=== PATIENT | male | born 1975 | race Asian ===

== ENCOUNTER 2021-01-12 20:30 | Inpatient (IN) | payer MEDICAID ==
--- NOTE | 2021-01-12 20:50 | ED Physician Documentation ---
PD HPI ABD PAIN - Stated complaint Stated Complaint: NAUSEA,ABD CRAMPING - Chief complaint Chief Complaint: Abd Pain - History obtained from History obtained from: Patient - History of Present Illness Timing - onset: Today (this morning, onset of cramping abd pain after breakfast, which has persisted through the day, with the worst pain becoming RLQ. Associated with nausea and some dry heaving.) Timing - duration: Days (1/2) Timing - details: Gradual onset Quality: Cramping, Aching, Pain Location: All over / everywhere, RLQ Radiation: No: Chest, Left flank, Right flank Improved by: No: Vomiting Worsened by: Moving, Palpation. No: Breathing Associated symptoms: Nausea, Vomiting, Loss of appetite. No: Fever, Diarrhea, Constipation (last BM last evening and normal), Dysuria Similar symptoms before: Has not had sx before Recently seen: Not recently seen Review of Systems Constitutional: denies: Fever, Chills, Myalgias Nose: denies: Rhinorrhea / runny nose, Congestion Throat: denies: Sore throat Cardiac: denies: Chest pain / pressure, Palpitations, Calf pain Respiratory: denies: Dyspnea, Cough, Wheezing GI: reports: Abdominal Pain, Nausea, Vomiting. denies: Abdominal Swelling, Diarrhea, Bloody / black stool : denies: Dysuria, Frequency Musculoskeletal: denies: Extremity swelling Neurologic: denies: Near syncope, Altered mental status PD PAST MEDICAL HISTORY - Past Medical History Cardiovascular: Hypertension Respiratory: None Neuro: None Endocrine/Autoimmune: None GI: None - Past Surgical History Past Surgical History: No - Allergies Allergies/Adverse Reactions: Allergies Allergy/AdvReac Type Severity Reaction Status Date / Time No Known Drug Allergies Allergy Verified 01/12/21 20:44 PD ED PE NORMAL - Vitals Vital signs reviewed: Yes - General General: Alert and oriented X 3, Well developed/nourished, Other (appears in pain from abdomen.) - HEENT HEENT: Pharynx benign - Neck Neck: Supple, no meningeal sign, No adenopathy - Cardiac Cardiac: No murmur. No: RRR (regular but tachycardic) - Respiratory Respiratory: Clear bilaterally - Abdomen Abdomen: Soft, Non distended, Other (He is markedly tender in the right lower quadrant with some moderate tenderness in the mid abdomen and right upper. Left side is nontender. There is a mild percussion and rebound tenderness referring to the right.). No: Normal bowel sounds (diminished) - Male Male : Deferred - Rectal Rectal: Deferred - Back Back: No CVA TTP - Derm Derm: Normal color, Warm and dry - Extremities Extremities: Normal ROM s pain, No edema, No calf tenderness / cord - Neuro Neuro: Alert and oriented X 3, No motor deficit, Normal speech Results - Vitals Vitals: Vital Signs - 24 hr 01/12/21 20:40 Temperature 36.1 C L Heart Rate 106 H Respiratory 20 Rate Blood Pressure 164/111 H O2 Saturation 96 Oxygen O2 Source Room air - Labs Labs: Laboratory Tests 01/12/21 01/12/21 01/12/21 20:51 20:51 21:24 WBC 17.6 H RBC 6.05 Hgb 17.0 Hct 51.6 MCV 85.3 MCH 28.1 MCHC 32.9 RDW 12.4 Plt Count 244 MPV 10.5 Neut # (Auto) 14.7 H Lymph # (Auto) 1.5 [place] # (Auto) 1.1 H Eos # (Auto) 0.3 Baso # (Auto) 0.1 Absolute Nucleated RBC 0.00 Nucleated RBC % 0.0 Sodium 137 Potassium 4.0 Chloride 96 L Carbon Dioxide 30 Anion Gap 11.0 BUN 14 Creatinine 0.8 Estimated GFR (MDRD) 104 Glucose 160 H Calcium 9.1 Total Bilirubin 1.4 H AST 51 H ALT 65 H Alkaline Phosphatase 66 Total Protein 7.3 Albumin 4.3 Globulin 3.0 Albumin/Globulin Ratio 1.4 Lipase 19 L Urine Color Urine Clarity Urine pH Ur Specific [place] Urine Protein Urine Glucose (UA) Urine Ketones Urine Occult Blood Urine Nitrite Urine Bilirubin Urine Urobilinogen Ur Leukocyte Esterase Ur Microscopic Review Urine Culture Comments Nasal Adenovirus (PCR) NOT DETECTED Nasal B. parapertussis DNA (PCR) NOT DETECTED Nasal Coronavir 229E PCR NOT DETECTED Nasal Coronavir HKU1 PCR NOT DETECTED Nasal Coronavir NL63 PCR NOT DETECTED Nasal Coronavir OC43 PCR NOT DETECTED Nasal Enterovir/Rhinovir PCR NOT DETECTED Nasal Influenza B PCR NOT DETECTED Nasal Influenza A PCR NOT DETECTED Nasal Parainfluen 1 PCR NOT DETECTED Nasal Parainfluen 2 PCR NOT DETECTED Nasal Parainfluen 3 PCR NOT DETECTED Nasal Parainfluen 4 PCR NOT DETECTED Nasal RSV (PCR) NOT DETECTED Nasal B.pertussis DNA PCR NOT DETECTED Nasal C.pneumoniae (PCR) NOT DETECTED Jovan Human Metapneumo PCR NOT DETECTED Nasal M.pneumoniae (PCR) NOT DETECTED Nasal SARS-CoV-2 (PCR) NOT DETECTED 01/12/21 22:24 WBC RBC Hgb Hct MCV MCH MCHC RDW Plt Count MPV Neut # (Auto) Lymph # (Auto) [place] # (Auto) Eos # (Auto) Baso # (Auto) Absolute Nucleated RBC Nucleated RBC % Sodium Potassium Chloride Carbon Dioxide Anion Gap BUN Creatinine Estimated GFR (MDRD) Glucose Calcium Total Bilirubin AST ALT Alkaline Phosphatase Total Protein Albumin Globulin Albumin/Globulin Ratio Lipase Urine Color YELLOW Urine Clarity CLEAR Urine pH 7.5 Ur Specific [place] 1.015 Urine Protein NEGATIVE Urine Glucose (UA) 100 H Urine Ketones NEGATIVE Urine Occult Blood NEGATIVE Urine Nitrite NEGATIVE Urine Bilirubin NEGATIVE Urine Urobilinogen 0.2 (NORMAL) Ur Leukocyte Esterase NEGATIVE Ur Microscopic Review NOT INDICATED Urine Culture Comments NOT INDICATED Nasal Adenovirus (PCR) Nasal B. parapertussis DNA (PCR) Nasal Coronavir 229E PCR Nasal Coronavir HKU1 PCR Nasal Coronavir NL63 PCR Nasal Coronavir OC43 PCR Nasal Enterovir/Rhinovir PCR Nasal Influenza B PCR Nasal Influenza A PCR Nasal Parainfluen 1 PCR Nasal Parainfluen 2 PCR Nasal Parainfluen 3 PCR Nasal Parainfluen 4 PCR Nasal RSV (PCR) Nasal B.pertussis DNA PCR Nasal C.pneumoniae (PCR) Jovan Human Metapneumo PCR Nasal M.pneumoniae (PCR) Nasal SARS-CoV-2 (PCR) - Rads (name of study) abd/pelvic CT Radiology: Prelim report reviewed (acute appendicitis without abscess nor perforation), See rad report PD MEDICAL DECISION MAKING - ED course Complexity details: considered differential (Symptoms and exam suggestive of appendicitis. Will get labs/UA/CT and give fluids and meds. ), d/w patient, d/w area development consultant (Dr. Elam, contact center manager surgery, who will do surgery first thing in AM. ) Departure - Departure Disposition: ED Transfer to [facility] Clinical Impression: Abdominal pain Qualifiers: Abdominal location: right lower quadrant Qualified Code(s): R10.31 - Right lower quadrant pain Appendicitis Qualifiers: Appendicitis type: acute appendicitis Acute appendicitis type: with localized peritonitis Appendicitis gangrene presence: without gangrene Appendicitis perforation presence: without perforation Appendicitis abscess presence: without abscess Qualified Code(s): K35.30 - Acute appendicitis with localized peritonitis, without perforation or gangrene Condition: Stable Record reviewed to determine appropriate education?: Yes
[2021-01-12 20:57] LABS: BASOPHILS # (AUTO) 0.1 10^3/uL (0.0-0.1); BASOPHILS % (AUTO) 0.4 %; EOSINOPHILS # (AUTO) 0.3 10^3/uL (0.0-0.7); EOSINOPHILS % (AUTO) 1.6 %; HCT - HEMATOCRIT 51.6 % (42.0-52.0); LYMPHOCYTES # (AUTO) 1.5 10^3/uL (1.5-3.5); LYMPHOCYTES % (AUTO) 8.2 %; MEAN CORPUSCULAR HEMOGLOBIN 28.1 pg (27.0-31.0); MEAN CORPUSCULAR HGB CONC 32.9 g/dL (32.0-36.0); MEAN CORPUSCULAR VOLUME 85.3 fL (80.0-94.0); MEAN PLATELET VOLUME 10.5 fL (7.4-11.4); MONOCYTES # (AUTO) 1.1 10^3/uL (0.0-1.0); MONOCYTES % (AUTO) 6.1 %; NEUTROPHILS # (AUTO) 14.7 10^3/uL (1.5-6.6); NEUTROPHILS % (AUTO) 83.2 %; PLT - PLATELET COUNT 244 10^3/uL (130-450); RED BLOOD COUNT 6.05 10^6/uL (4.70-6.10); RED CELL DISTRIBUTION WIDTH 12.4 % (12.0-15.0); WHITE BLOOD COUNT 17.6 x10^3/uL (4.8-10.8)
[2021-01-12] MEDS ORDERED: HYDROmorphone 1 MG/ML CARPUJECT IVP STA (21:00)
[2021-01-12] MEDS ORDERED: ONDANSETRON 4 MG/2 ML VIAL IVP STA (21:00)
[2021-01-12] MEDS ORDERED: KETOROLAC 15 MG/ML VIAL IVP STA (21:00)
[2021-01-12] MEDS ORDERED: SODIUM CHLORIDE 0.9% 1,000 ML IV STA ×2 (21:00→22:11)
[2021-01-12 21:08] LABS: ALBUMIN 4.3 g/dL (3.2-5.5); ALBUMIN/GLOBULIN RATIO 1.4 (1.0-2.2); BILIRUBIN,TOTAL 1.4 mg/dL (0.2-1.0); CALCIUM 9.1 mg/dL (8.5-10.3); CREATININE 0.8 mg/dL (0.6-1.2); TOTAL PROTEIN 7.3 g/dL (6.7-8.2)
[2021-01-12] MEDS ORDERED: IOPAMIDOL-300 100 ML VIAL ONE (21:10)
[2021-01-12] MEDS ORDERED: IOPAMIDOL-300 100 ML VIAL IVP ONE (21:46)
--- NOTE | 2021-01-12 22:04 | CT Report ---
PROCEDURE: Abdomen/Pelvis W INDICATIONS: rlq pain/abd cramping since am CONTRAST: IV CONTRAST: Isovue 300 ml: 100 PO CONTRAST: *NO PO CONTRAST TECHNIQUE: After the administration of IV contrast, 5 mm thick sections acquired from the diaphragms to the symp hysis. 5 mm thick coronal and sagittal reformats were acquired. For radiation dose reduction, the f ollowing was used: automated exposure control, adjustment of mA and/or kV according to patient size. COMPARISON: None. FINDINGS: Image quality: Excellent. ABDOMEN: Lung bases: Mild bibasilar dependent atelectasis are seen posteriorly. Heart size is borderline enlar ged, no pericardial effusion. Solid organs: There is hepatosplenomegaly, no discrete hepatic or splenic lesion. Mild hepatic steato sis is seen. Tiny calcification in dependent portion of gallbladder lumen is seen. Foci of calcificat ion also seen scattered in gallbladder wall without focal gallbladder wall mass or thickening. Biliar y system is non dilated. Pancreas enhances normally. No adrenal nodules. Kidneys demonstrate sarah l size and enhancement, without hydronephrosis. 5 mm nonobstructing stone in mid pole of right kidne y is seen. Peritoneum and bowel: There is no evidence of bowel obstruction. Appendix is enlarged with moderate p eriappendiceal fat stranding consistent with acute appendicitis. There is no discrete drainable absce ss collection. No other area of abnormal bowel wall thickening. No free fluid of free air. Nodes and vessels: No retroperitoneal or mesenteric adenopathy by size criteria. Aorta and inferior vena cava are normal in size. Miscellaneous: No ventral hernias. PELVIS: Genitourinary: Bladder wall thickness is normal. Miscellaneous: No inguinal hernias or adenopathy. Bones: No suspicious bony lesions. No vertebral body compression fractures. IMPRESSION: 1. Finding is consistent with acute appendicitis. No drainable abscess collection is seen. No signs o f perforation. 2. No bowel obstruction. No other area of abnormal bowel wall thickening. 3. Nonobstructing stone in right kidney. No hydronephrosis. 4. Cholelithiasis and suggestion of focal area of wall calcification. No CT evidence of acute cholecy stitis. No biliary duct dilatation. 5. Hepatosplenomegaly and hepatic steatosis. No discrete hepatic or splenic lesion. Reviewed by: Arnold Ramírez MD on 01/12/2021 10:02 PM PDT Approved by: Arnold Ramírez MD on 01/12/2021 10:02 PM PDT Station ID: [id number]
[2021-01-12] MEDS ORDERED: PIPERACILLIN/TAZOBACTAM 3.375 GM in SODIUM CHLORIDE 0.9% MINIBAG 100 ML IV STA (22:11)
[2021-01-12 22:24] LABS: B. PARAPERTUSSIS- RESP PCR PAN NOT DETECTED; B. PERTUSSIS- RESP PCR PANEL NOT DETECTED; C. PNEUMONIAE- RESP PCR PANEL NOT DETECTED; CORONAVIRUS 229E-RESP PCR NOT DETECTED; CORONAVIRUS HKU1-RESP PCR NOT DETECTED; CORONAVIRUS NL63-RESP PCR NOT DETECTED; CORONAVIRUS OC43-RESP PCR NOT DETECTED; HUMAN METAPNEUMOVIRUS NOT DETECTED; INFLUENZA A- RESP PCR PANEL NOT DETECTED; INFLUENZA B - RESP PCR PANEL NOT DETECTED; M. PNEUMONIAE- RESP PCR PANEL NOT DETECTED; PARAINFLUENZA VIRUS 1 NOT DETECTED; PARAINFLUENZA VIRUS 2 NOT DETECTED; PARAINFLUENZA VIRUS 3 NOT DETECTED; PARAINFLUENZA VIRUS 4 NOT DETECTED; RHINOVIRUS/ENTEROVIRUS NOT DETECTED; RSV- RESP PCR PANEL NOT DETECTED; SARS-CoV-2 -RESP PCR PANEL NOT DETECTED
[2021-01-12] MEDS ORDERED: ONDANSETRON 4 MG/2 ML VIAL IVP PRN (22:30)
[2021-01-12] MEDS ORDERED: ONDANSETRON ODT 4 MG TABLET TL PRN (22:30)
[2021-01-12] MEDS ORDERED: PROCHLORPERAZINE 10 MG/2 ML VIAL IVP PRN (22:30)
[2021-01-12 22:34] LABS: BILIRUBIN,URINE NEGATIVE (NEGATIVE); GLUCOSE, URINE (UA) 100 mg/dL (NEGATIVE); KETONES,URINE (UA) NEGATIVE (NEGATIVE); LEUKOCYTE ESTERASE, URINE NEGATIVE (NEGATIVE); NITRITE,URINE NEGATIVE (NEGATIVE); OCCULT BLOOD,URINE NEGATIVE (NEGATIVE); PH,URINE 7.5 PH (5.0-7.5); PROTEIN,URINE NEGATIVE (NEGATIVE); UROBILINOGEN,URINE 0.2 (NORMAL) E.U./dL (NORMAL)
[2021-01-12 22:50] LABS: CLARITY,URINE CLEAR (CLEAR)
[2021-01-12] MEDS ORDERED: LACTATED RINGERS 1,000 ML IV SCH (23:00)
[2021-01-13] MEDS: HYDROmorphone 0.5 MG/0.5 ML SYRINGE IVP PRN ×4 (01:34→19:03)
[2021-01-13] MEDS ORDERED: PIPERACILLIN/TAZOBACTAM 3.375 GM in SODIUM CHLORIDE 0.9% MINIBAG 100 ML IV SCH (02:00)
[2021-01-13] MEDS: SODIUM CHLORIDE FLUSH 0.9% 10 ML SYRINGE IVP SCH ×3 (03:46→17:15)
[2021-01-13] MEDS: HYDROcod/ACETAM 5/325 MG TABLET PO PRN ×2 (05:06→11:09)
[2021-01-13] MEDS ORDERED: SODIUM CHLORIDE 0.9% 500 ML IV ONE (06:20)
[2021-01-13] MEDS: PIPERACILLIN/TAZOBACTAM 3.375 GM in SODIUM CHLORIDE 0.9% MINIBAG 100 ML IV SCH ×2 (06:58→13:27)
[2021-01-13] MEDS ORDERED: BUPIVACAINE 0.25% PF 30 ML VIAL ONE (08:11)
--- NOTE | 2021-01-13 08:11 | HISTORY & PHYSICAL EXAMINATION ---
Chief Complaint - Chief Complaint Chief Complaint: abdominal pain History of Present Illness - Admitted From Admitted From:: ED - History Obtained From Records Reviewed: yes History obtained from: pt Exam Limitations: none/ does not remember meds - History of Present Illness HPI Comment/Other: 1 day of right lower quadrant pain. Getting worse History - Past Medical History Cardiovascular: reports: Hypertension Respiratory: reports: None Neuro: reports: None Endocrine/Autoimmune: reports: None GI: reports: None Meds/Allgy - Allergies Allergies/Adverse Reactions: Allergies Allergy/AdvReac Type Severity Reaction Status Date / Time No Known Drug Allergies Allergy Verified 01/12/21 20:44 Review of Systems - Other Findings Other Findings: sleep apnea, know htn. he thinks he takes a med for this. does not remember the name 10 pt ros as above otherwise unremarkable Exam - Vital Signs Reviewed Vital Signs: Yes Vital Signs: Vital Signs x48h Temp Pulse Resp BP Pulse Ox 01/13/21 07:24 37.0 C 110 H 24 166/101 H 98 01/13/21 01:47 96 01/13/21 01:40 87 L 01/13/21 00:20 36.6 C 95 18 152/97 H 99 - Physical Exam General Appearance: positive: No acute distress, Alert Eyes Bilateral: positive: PERRL, EOMI ENT: positive: No signs of dehydration Neck: positive: No JVD Respiratory: positive: No respiratory distress, Breath sounds nml Cardiovascular: positive: Regular rate & rhythm Abdomen: positive: No distention, Other (right lower quadrant tenderness) Neurologic/Psychiatric: positive: Oriented x3 Conclusion/Plan - Problem List (1) Appendicitis Conclusion/Plan: Plan Ivf, Iv antibiotics and surgery if found appropriate per anesthesia. He has poorly controlled htn and sleep apnea. Required oxygen overnight. Treatment with antibiotics is an option. parq held and consent obtained Qualifiers: Appendicitis type: acute appendicitis Acute appendicitis type: with localized peritonitis Appendicitis gangrene presence: without gangrene Appendicitis perforation presence: without perforation Appendicitis abscess presence: without abscess Qualified Code(s): K35.30 - Acute appendicitis with localized peritonitis, without perforation or gangrene - Lab Results Fish Bones: 01/12/21 20:51 01/12/21 20:51 - Diagnostic Imaging Results Diagnostic Imaging Results: positive: Read independently
[2021-01-13] MEDS ORDERED: BUPIVACAINE 0.5%-EPI 1:200000 PF 30 ML VIAL ONE (08:36)
[2021-01-13] MEDS ORDERED: BUPIVACAINE 0.25% PF 30 ML VIAL SUBQ ONE (08:37)
--- NOTE | 2021-01-13 08:47 | ANESTHESIA ---
Pre-Anesthesia VS, & Labs - Diagnosis appendicitis - Procedure laparoscopic appendectomy Vital Signs: Temp Pulse Resp BP Pulse Ox 37.0 C 110 H 24 166/101 H 98 01/13/21 07:24 01/13/21 07:24 01/13/21 07:24 01/13/21 07:24 01/13/21 07:24 Height: 5 ft 11 in Weight (kg): 124 kg Body Mass Index: 38.1 BMI Classification: Obese - Lab Results Current Lab Results: Laboratory Tests 01/12/21 20:51: Sodium 137, Potassium 4.0, Chloride 96 L, Carbon Dioxide 30, Anion Gap 11.0, BUN 14, Creatinine 0.8, Estimated GFR (MDRD) 104, Glucose 160 H, Calcium 9.1, Total Bilirubin 1.4 H, AST 51 H, ALT 65 H, Alkaline Phosphatase 66, Total Protein 7.3, Albumin 4.3, Globulin 3.0, Albumin/Globulin Ratio 1.4, Lipase 19 L 01/12/21 20:51: WBC 17.6 H, RBC 6.05, Hgb 17.0, Hct 51.6, MCV 85.3, MCH 28.1, MCHC 32.9, RDW 12.4, Plt Count 244, MPV 10.5, Neut # (Auto) 14.7 H, Lymph # (Auto) 1.5, [place] # (Auto) 1.1 H, Eos # (Auto) 0.3, Baso # (Auto) 0.1, Absolute Nucleated RBC 0.00, Nucleated RBC % 0.0 Fish Bones: 01/12/21 20:51 01/12/21 20:51 Home Medications and Allergies Active Medications Acetaminophen (Acetaminophen 325 Mg Tablet) 650 mg PO Q4HR PRN PRN Reason: Pain 1 to 4 Hydrocodone Bitart/Acetaminophen (Hydrocod/Acetam 5/325 Mg Tablet) 1 tab PO Q4HR PRN PRN Reason: Pain 5 to 7 Last Admin: 01/13/21 05:06 Dose: 1 tab Documented by: Hydromorphone HCl (Hydromorphone 0.5 Mg/0.5 Ml Syringe) 0.5 mg IVP Q2H PRN PRN Reason: Pain 8 to 10 Last Admin: 01/13/21 05:02 Dose: 0.5 mg Documented by: Lactated Ringer's (Lr) 1,000 mls @ 125 mls/hr IV .Q8H [facility] Last Infusion: 01/13/21 08:09 Dose: 0 mls/hr Documented by: Piperacillin Sod/Tazobactam (Sod 3.375 gm/ Sodium Chloride) 100 mls @ 25 mls/hr IV Q8H [facility] Last Admin: 01/13/21 06:58 Dose: 25 mls/hr Documented by: Ondansetron HCl (Ondansetron Odt 4 Mg Tablet) 4 mg TL Q6HR PRN PRN Reason: Nausea / Vomiting Ondansetron HCl (Ondansetron 4 Mg/2 Ml Vial) 4 mg IVP Q6HR PRN PRN Reason: Nausea / Vomiting Prochlorperazine Edisylate (Prochlorperazine 10 Mg/2 Ml Vial) 10 mg IVP Q6HR PRN PRN Reason: Nausea / Vomiting Sodium Chloride (Sodium Chloride Flush 0.9% 10 Ml Syringe) 10 ml IVP PRN PRN PRN Reason: NEEDED PER PROVIDER ORDERS Sodium Chloride (Sodium Chloride Flush 0.9% 10 Ml Syringe) 10 ml IVP 0100,0900,1700 [facility] Last Admin: 01/13/21 08:09 Dose: Not Given Documented by: Allergies/Adverse Reactions: Allergies Allergy/AdvReac Type Severity Reaction Status Date / Time No Known Drug Allergies Allergy Verified 01/12/21 20:44 Anes History & Medical History - Medical History Cardiovascular: reports: Hypertension, Other (cardiac workup for tachycardia? last summer per patient at [place]' patient unsure of condition that he has, was prescribed meds but does not take consistently, does not know what they are. I ordered EKG and asked the RN to try to obtain records.) Pulmonary: reports: None Gastrointestinal: reports: None Neuro: reports: None Endocrine/Autoimmune: reports: None Smoking Status: Current every day smoker Exam General: Alert, Cooperative Mouth Opening: Greater than 4 Fingerbreadths Mallampati classification: III Thyromental Distance: greater than 6 cm Respiratory: Lungs clear Cardiovascular: Regular rate, Normal S1, Normal S2 Plan Anesthesia Type: General Consent for Procedure(s) Verified and Reviewed: No Code Status: Attempt Resuscitation ASA classification: 3-Severe systemic disease (uncontrolled HTN, some cardiac issues that are unknown) Is this case an emergency?: No (Will need to obtain cardiac clearance unless emergent)
[2021-01-13] MEDS ORDERED: D5.45NS W/20 MEQ KCL 1,000 ML IV STA (08:52)
--- NOTE | 2021-01-13 09:23 | PROVIDER PROGRESS NOTE ---
Subjective - Subjective Pt reports feeling: No change Objective - Vital Signs/Intake & Output Vital Signs: Vital Signs x48h Temp Pulse Resp BP Pulse Ox 01/13/21 07:24 37.0 C 110 H 24 166/101 H 98 01/13/21 01:47 96 01/13/21 01:40 87 L Intake & Output: Intake & Output 01/10/21 01/11/21 01/12/21 01/13/21 23:59 23:59 23:59 23:59 Intake Total 1100 1772.917 Balance 1100 1772.917 - Lab Results Fish Bones: 01/12/21 20:51 01/12/21 20:51 Other Labs: Lab Results x24hrs 01/12/21 01/12/21 01/12/21 Range/Units 22:24 21:24 20:51 WBC (4.8-10.8) x10^3/uL RBC (4.70-6.10) 10^6/uL Hgb (14.0-18.0) g/dL Hct (42.0-52.0) % MCV (80.0-94.0) fL MCH (27.0-31.0) pg MCHC (32.0-36.0) g/dL RDW (12.0-15.0) % Plt Count (130-450) 10^3/uL MPV (7.4-11.4) fL Neut # (Auto) (1.5-6.6) 10^3/uL Lymph # (Auto) (1.5-3.5) 10^3/uL [place] # (Auto) (0.0-1.0) 10^3/uL Eos # (Auto) (0.0-0.7) 10^3/uL Baso # (Auto) (0.0-0.1) 10^3/uL Absolute Nucleated RBC x10^3/uL Nucleated RBC % /100WBC Sodium 137 (135-145) mmol/L Potassium 4.0 (3.5-5.0) mmol/L Chloride 96 L (101-111) mmol/L Carbon Dioxide 30 (21-32) mmol/L Anion Gap 11.0 (6-13) BUN 14 (6-20) mg/dL Creatinine 0.8 (0.6-1.2) mg/dL Estimated GFR (MDRD) 104 (>89) Glucose 160 H (70-100) mg/dL Calcium 9.1 (8.5-10.3) mg/dL Total Bilirubin 1.4 H (0.2-1.0) mg/dL AST 51 H (10-42) IU/L ALT 65 H (10-60) IU/L Alkaline Phosphatase 66 (42-121) IU/L Total Protein 7.3 (6.7-8.2) g/dL Albumin 4.3 (3.2-5.5) g/dL Globulin 3.0 (2.1-4.2) g/dL Albumin/Globulin Ratio 1.4 (1.0-2.2) Lipase 19 L (22-51) U/L Urine Color YELLOW Urine Clarity CLEAR (CLEAR) Urine pH 7.5 (5.0-7.5) PH Ur Specific [place] 1.015 (1.002-1.030) Urine Protein NEGATIVE (NEGATIVE) mg/dL Urine Glucose (UA) 100 H (NEGATIVE) mg/dL Urine Ketones NEGATIVE (NEGATIVE) mg/dL Urine Occult Blood NEGATIVE (NEGATIVE) Urine Nitrite NEGATIVE (NEGATIVE) Urine Bilirubin NEGATIVE (NEGATIVE) Urine Urobilinogen 0.2 (NORMAL) (NORMAL) E.U./dL Ur Leukocyte Esterase NEGATIVE (NEGATIVE) Ur Microscopic Review NOT INDICATED Urine Culture Comments NOT INDICATED Nasal Adenovirus (PCR) NOT DETECTED Nasal B. parapertussis DNA (PCR) NOT DETECTED Nasal Coronavir 229E PCR NOT DETECTED Nasal Coronavir HKU1 PCR NOT DETECTED Nasal Coronavir NL63 PCR NOT DETECTED Nasal Coronavir OC43 PCR NOT DETECTED Nasal Enterovir/Rhinovir PCR NOT DETECTED Nasal Influenza B PCR NOT DETECTED Nasal Influenza A PCR NOT DETECTED Nasal Parainfluen 1 PCR NOT DETECTED Nasal Parainfluen 2 PCR NOT DETECTED Nasal Parainfluen 3 PCR NOT DETECTED Nasal Parainfluen 4 PCR NOT DETECTED Nasal RSV (PCR) NOT DETECTED Nasal B.pertussis DNA PCR NOT DETECTED Nasal C.pneumoniae (PCR) NOT DETECTED Jovan Human Metapneumo PCR NOT DETECTED Nasal M.pneumoniae (PCR) NOT DETECTED Nasal SARS-CoV-2 (PCR) NOT DETECTED 01/12/21 Range/Units 20:51 WBC 17.6 H (4.8-10.8) x10^3/uL RBC 6.05 (4.70-6.10) 10^6/uL Hgb 17.0 (14.0-18.0) g/dL Hct 51.6 (42.0-52.0) % MCV 85.3 (80.0-94.0) fL MCH 28.1 (27.0-31.0) pg MCHC 32.9 (32.0-36.0) g/dL RDW 12.4 (12.0-15.0) % Plt Count 244 (130-450) 10^3/uL MPV 10.5 (7.4-11.4) fL Neut # (Auto) 14.7 H (1.5-6.6) 10^3/uL Lymph # (Auto) 1.5 (1.5-3.5) 10^3/uL [place] # (Auto) 1.1 H (0.0-1.0) 10^3/uL Eos # (Auto) 0.3 (0.0-0.7) 10^3/uL Baso # (Auto) 0.1 (0.0-0.1) 10^3/uL Absolute Nucleated RBC 0.00 x10^3/uL Nucleated RBC % 0.0 /100WBC Sodium (135-145) mmol/L Potassium (3.5-5.0) mmol/L Chloride (101-111) mmol/L Carbon Dioxide (21-32) mmol/L Anion Gap (6-13) BUN (6-20) mg/dL Creatinine (0.6-1.2) mg/dL Estimated GFR (MDRD) (>89) Glucose (70-100) mg/dL Calcium (8.5-10.3) mg/dL Total Bilirubin (0.2-1.0) mg/dL AST (10-42) IU/L ALT (10-60) IU/L Alkaline Phosphatase (42-121) IU/L Total Protein (6.7-8.2) g/dL Albumin (3.2-5.5) g/dL Globulin (2.1-4.2) g/dL Albumin/Globulin Ratio (1.0-2.2) Lipase (22-51) U/L Urine Color Urine Clarity (CLEAR) Urine pH (5.0-7.5) PH Ur Specific [place] (1.002-1.030) Urine Protein (NEGATIVE) mg/dL Urine Glucose (UA) (NEGATIVE) mg/dL Urine Ketones (NEGATIVE) mg/dL Urine Occult Blood (NEGATIVE) Urine Nitrite (NEGATIVE) Urine Bilirubin (NEGATIVE) Urine Urobilinogen (NORMAL) E.U./dL Ur Leukocyte Esterase (NEGATIVE) Ur Microscopic Review Urine Culture Comments Nasal Adenovirus (PCR) Nasal B. parapertussis DNA (PCR) Nasal Coronavir 229E PCR Nasal Coronavir HKU1 PCR Nasal Coronavir NL63 PCR Nasal Coronavir OC43 PCR Nasal Enterovir/Rhinovir PCR Nasal Influenza B PCR Nasal Influenza A PCR Nasal Parainfluen 1 PCR Nasal Parainfluen 2 PCR Nasal Parainfluen 3 PCR Nasal Parainfluen 4 PCR Nasal RSV (PCR) Nasal B.pertussis DNA PCR Nasal C.pneumoniae (PCR) Jovan Human Metapneumo PCR Nasal M.pneumoniae (PCR) Nasal SARS-CoV-2 (PCR) Assessment/Plan - Problem List (1) Appendicitis Impression: Discussed with anesthesia and pt. He is not a good candidate for surgery at this time. Antibiotics alone for appendicitis is successful 75% of the time Medicine consult for htn clear liquid diet recheck labs tomorrow old records have been requested Qualifiers: Appendicitis type: acute appendicitis Acute appendicitis type: with localized peritonitis Appendicitis gangrene presence: without gangrene Appendicitis perforation presence: without perforation Appendicitis abscess presence: without abscess Qualified Code(s): K35.30 - Acute appendicitis with localized peritonitis, without perforation or gangrene
[2021-01-13] MEDS: ACETAMINOPHEN 325 MG TABLET PO PRN ×2 (09:26→20:59)
--- NOTE | 2021-01-13 18:34 | CONSULTATION NOTE ---
Referring Provider Name of Referring Provider:: Rico Elam MD Consult Date: 01/13/21 Chief Complaint - Chief Complaint Chief Complaint: review of appt patient for OR History of Present Illness - Admitted From Admitted From:: Home - History Obtained From Records Reviewed: [facility] History obtained from: patient Exam Limitations: pain and sleepiness from pain meds - History of Present Illness HPI Comment/Other: He is a indigenous male in his 40s and has a past medical history of high blood pressure, obesity, and snoring with apnea. However he does not take any medications nor does he use a CPAP regularly. [place] significant other but they broke up 2 months ago. [place] States he has not she seen a physician in quite some time. He states that his health has been the same as always. Started developing abdominal cramping after breakfast yesterday morning. He states it is worse in the lower abdomen. Maybe it is worse on the right over the left. And it goes upward into his kidney areas. Any movement makes it worse. Just sitting up in bed makes it agonizing the painful. He has not been able to eat because of the pain. He has had a few episodes of vomiting and is very nauseated. He finally came to the emergency room with us yesterday and was seen by Dr. Esparza. Temperature was 36.1. Heart rate 106. Blood pressure 164/111. O2 sat 96% on room air. He had a soft, nondistended abdomen but was markedly tender in the right lower quadrant with moderate tenderness in the mid abdomen and right upper quadrant. Mild percussion and rebound tenderness referred to the right. Diminished bowel sounds. His white cell count was 17.6. CT scan shows acute appendicitis. General surgery was contacted. They feel that the patient has too many medical complications to be taken safely to the operating room. As such he admitted the patient for IV antibiotics. General surgery is hoping that the antibiotics will control the infection. In the meantime they have asked us to perform consultation for the patient's medical problems. Then having a cardiac work-up for a fast heart rate in the last year, he does not have any known heart history. But he cannot tell me what the heart fast heart rate was. He just knows that he was at [facility]. They gave him a pill but he does not take it on a regular basis. He does not know the name of the pill He has never had a heart attack, never been diagnosed with congestive heart failure, denies arrhythmia, denies valvular heart disease. He has no lung disease such as asthma or COPD. He has no kidney disease. He smokes 1 pack/day. Denies recreational substance abuse. Denies any alcohol abuse and drinks minimal alcohol on a yearly basis. Prior to this, his only complaint was occasional low back pain. He used to fix cars, and make furniture. History - Past Medical History Cardiovascular: reports: Hypertension, Other (Fast heart rate in the past. Unknown work-up) Respiratory: reports: None Neuro: reports: None Endocrine/Autoimmune: reports: None GI: reports: None : reports: None HEENT: reports: None Psych: reports: None Derm: reports: None - Family & Social History Family History Comment/Other: Both mom and dad are in their 60s. As far as he knows they do not have high blood pressure, diabetes, cancer, heart attack, stroke, arrhythmia, thyroid disease. He has one half sister and he states she is completely healthy. He has 2 sons that are still not even teenagers and they are healthy Living arrangement: At home Living Situation: Alone Social History Notes: Born and raised in the [facility] [place]. Came into lived in [place] for work. He then met a woman and moved to [facility] to be with her but they broke up 2 months ago. He has been once before. 2 sons live with their mother. He states he does not drink. Does not use any recreational substance abuse. Smokes 1 pack/day for over 20 years. 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 He really has not worked much since [employer]. - Substance History Use: Uses substance without health or social issues: Tobacco Dependence: Experiences withdrawal or developed tolerances: NONE - POLST Patient has POLST: No POLST Status: Full Code Meds/Allgy - Allergies Allergies/Adverse Reactions: Allergies Allergy/AdvReac Type Severity Reaction Status Date / Time No Known Drug Allergies Allergy Verified 01/12/21 20:44 Review of Systems - Constitutional Constitutional: reports: Poor appetite, Diaphoresis, Weight gain. denies: Fatigue, Fever, Chills, Malaise - Eyes Eyes: denies: Pain, Irritation, Amaurosis, Blurred vision - Ears, Nose & Throat Ears, Nose & Throat: reports: Hearing loss. denies: Hearing aids, Tinnitus, Vertigo, Sore throat, Hoarseness - Cardiovascular Cariovascular: denies: Irregular heart rate, Palpitations, Chest pain, Syncope, Exertional dyspnea, Decr. exercise tolerance - Respiratory Respiratory: reports: Snoring, Apnea. denies: Cough, Sputum production, Wheezing - Gastrointestinal Gastrointestinal: reports: Abdominal pain, Abdominal distention, Nausea, Vomit ing, Bloating, Poor appetite - Genitourinary Genitourinary: denies: Dysuria, Frequency, Urgency, Hematuria, Incontinence - Musculoskeletal Musculoskeletal: reports: Back pain, Stiffness, Joint pain. denies: Muscle pain, Muscle aches - Integumentary Integumentary: denies: Rash, Pruritis, Lesions, Dryness - Neurological Neurological: denies: General weakness, Focal weakness, Headache, Dizziness - Psychiatric Psychiatric: denies: Depression, Anxiety, Suicidal - Endocrine Endocrine: denies: Polyuria, Polydypsia, Polyphagia - Hematologic/Lymphatic Hematologic/Lymphatic: denies: Anemia, Bruising, Petechiae Exam - Vital Signs Reviewed Vital Signs: Yes Vital Signs: Vital Signs x48h Temp Pulse Resp BP Pulse Ox 01/13/21 16:00 36.8 C 101 H 24 146/102 H 98 - Physical Exam General Appearance: positive: Moderate distress, Other (Sleepy, obese, white male who I had to awaken and he is a little disoriented, but grimacing and significant pain just laying in bed to roll over for my exam) Eyes Bilateral: positive: PERRL, EOMI ENT: positive: No signs of dehydration Neck: positive: No JVD. negative: Stiff neck Respiratory: positive: No respiratory distress. negative: Wheezes, Rales, Rhonchi Cardiovascular: positive: Regular rate & rhythm. negative: Gallop/S4, Friction rub Peripheral Pulses: positive: 1+ Abdomen: positive: Other (Tender right lower quadrant, was referred pain from the left to the right. He does have rebound and guarding. Hypoactive bowel sounds. Just trying to have him sit up is agonizingly painful.) Skin: positive: No rash, Warm, Dry Extremities: positive: Non-tender, Full ROM Neurologic/Psychiatric: positive: Oriented x3, CN's nml (2-12), Motor nml, Sensation nml Conclusion/Plan - Problem List (1) Appendicitis Conclusion/Plan: Patient has been admitted by general surgery. We have been asked to consult. At this time management is conservative with medications only. He is on single agent Zosyn. He is n.p.o. Continues to have significant pain. Tachycardic throughout the day at 101 210. Blood pressure is maintaining. Labs were not repeated today. Plan: Management per general surgery I will take the liberty of ordering a CBC and a CMP for tomorrow since we do not have any labs from today. Qualifiers: Appendicitis type: acute appendicitis Acute appendicitis type: with localized peritonitis Appendicitis gangrene presence: without gangrene Appendicitis perforation presence: without perforation Appendicitis abscess presence: without abscess Qualified Code(s): K35.30 - Acute appendicitis with localized peritonitis, without perforation or gangrene (2) Hypertension Conclusion/Plan: He is on clear liquids. We will start him on lisinopril. Aim for goal in the 130s over 80s. Qualifiers: Hypertension type: primary hypertension Qualified Code(s): I10 - Essential (primary) hypertension (3) History of apnea Conclusion/Plan: He is a vague historian. He thinks he has a mask but he did not bring it with him. He does not use it on a regular basis. He is requiring 2 L nasal cannula to maintain O2 sats at 98%. On room air he is 87%. We will have him on continuous pulse ox while he is here especially since he falls asleep so easily. (4) Elevated liver enzymes Conclusion/Plan: No history of recreational substances abuse. He is morbidly obese and could have steatohepatitis. No history of alcohol abuse. Plan: Ultrasound not needed since CT of the abdomen done Hepatitis panel work-up for tomorrow morning (5) Hyperglycemia Conclusion/Plan: no history of DM. Will check A1c and start SS insulin. (6) Pre-op evaluation Conclusion/Plan: Surgical risk calculator in a gentleman with all of his comorbidities Has a 10.8% risk of serious complication which is an average risk for his age and status. He is slightly high risk for any complication at 16.6%. He is at increased risk for surgical site infection at 7.6%. Slightly increased risk for return to the operating room at 4.4%. He is at risk for sepsis as well. While his comorbidities have increased his surgical complication rate, they are all still manageable. Obstructive sleep apnea can be managed in the postoperative setting with slightly prolonged intubation until we can control his airway. Glucose is slightly elevated and that can be managed with insulin. Blood pressure can be managed with oral medication or IV medication. All of these are being done at this time to control risk and we will rely on general surgery judgment as to what surgical management will be for this gentleman's appendicitis. Case has been discussed with anesthesia - Lab Results Lab results reviewed: Yes Fish Bones: 01/12/21 20:51 01/12/21 20:51 - Diagnostic Imaging Results Diagnostic Imaging Results: positive: Final report reviewed - EKG Results EKG Interpreted Independently: Yes EKG Comparison: No prior EKG EKG Findings: Normal sinus rhythm with tachycardia. He has voltage criteria for left atrial enlargement. Bifascicular block with right bundle branch block and left posterior fascicular block. No acute ischemic changes. No EKG available for comparison
[2021-01-13] MEDS: ENALAPRILAT 1.25 MG/ML VIAL IVP SCH (19:18)
[2021-01-13] MEDS: lisinopriL 5 MG TABLET PO SCH (19:37)
[2021-01-13] MEDS: PIPERACILLIN/TAZOBACTAM 4.5 GM in SODIUM CHLORIDE 0.9% MINIBAG 100 ML IV SCH (20:17)
[2021-01-13] MEDS: INSULIN ASPART 300 UNIT/3 ML PEN SUBQ SCH (21:05)
[2021-01-14] MEDS: HYDROmorphone 0.5 MG/0.5 ML SYRINGE IVP PRN ×2 (00:35→03:48)
[2021-01-14] MEDS: SODIUM CHLORIDE FLUSH 0.9% 10 ML SYRINGE IVP SCH ×3 (00:35→19:52)
[2021-01-14] MEDS: ENALAPRILAT 1.25 MG/ML VIAL IVP SCH ×3 (01:04→12:24)
[2021-01-14] MEDS: PIPERACILLIN/TAZOBACTAM 4.5 GM in SODIUM CHLORIDE 0.9% MINIBAG 100 ML IV SCH ×4 (01:52→19:52)
[2021-01-14] MEDS: SODIUM CHLORIDE FLUSH 0.9% 10 ML SYRINGE IVP PRN (01:54)
[2021-01-14 05:14] LABS: BASOPHILS # (AUTO) 0.1 10^3/uL (0.0-0.1); BASOPHILS % (AUTO) 0.4 %; EOSINOPHILS # (AUTO) 0.2 10^3/uL (0.0-0.7); HCT - HEMATOCRIT 49.3 % (42.0-52.0); HGB - HEMOGLOBIN 15.8 g/dL (14.0-18.0); LYMPHOCYTES # (AUTO) 1.4 10^3/uL (1.5-3.5); LYMPHOCYTES % (AUTO) 8.7 %; MEAN CORPUSCULAR HEMOGLOBIN 27.6 pg (27.0-31.0); MEAN CORPUSCULAR VOLUME 86.2 fL (80.0-94.0); MEAN PLATELET VOLUME 10.3 fL (7.4-11.4); MONOCYTES # (AUTO) 1.1 10^3/uL (0.0-1.0); MONOCYTES % (AUTO) 7.1 %; NEUTROPHILS # (AUTO) 13.3 10^3/uL (1.5-6.6); NEUTROPHILS % (AUTO) 82.2 %; PLT - PLATELET COUNT 183 10^3/uL (130-450); RED BLOOD COUNT 5.72 10^6/uL (4.70-6.10); RED CELL DISTRIBUTION WIDTH 12.5 % (12.0-15.0); WHITE BLOOD COUNT 16.1 x10^3/uL (4.8-10.8)
[2021-01-14 05:29] LABS: ALBUMIN 3.6 g/dL (3.2-5.5); ALBUMIN/GLOBULIN RATIO 1.3 (1.0-2.2); BILIRUBIN,TOTAL 2.5 mg/dL (0.2-1.0); CALCIUM 8.5 mg/dL (8.5-10.3); CREATININE 0.9 mg/dL (0.6-1.2); POTASSIUM 3.4 mmol/L (3.5-5.0); TOTAL PROTEIN 6.3 g/dL (6.7-8.2)
--- NOTE | 2021-01-14 08:08 | PROVIDER PROGRESS NOTE ---
Subjective - Prog Note Date Prog Note Date: 01/14/21 Prog Note Time: 08:07 - Subjective Subjective: blood pressure is controlled and at goal. denies cp, sob, palpitations he is afraid to even roll over bc it hurts so badly. No flatus. Eating clear liquids. Can't sleep bc of pain in abd Current Medications - Current Medications Current Medications: Active Medications Acetaminophen (Acetaminophen 325 Mg Tablet) 650 mg PO Q4HR PRN PRN Reason: Pain 1 to 4 Last Admin: 01/13/21 20:59 Dose: 650 mg Documented by: Hydrocodone Bitart/Acetaminophen (Hydrocod/Acetam 5/325 Mg Tablet) 1 tab PO Q4HR PRN PRN Reason: Pain 5 to 7 Last Admin: 01/13/21 11:09 Dose: 1 tab Documented by: Enalaprilat (Enalaprilat 1.25 Mg/Ml Vial) 0.625 mg IVP Q6HR [facility] Last Admin: 01/14/21 06:54 Dose: 0.625 mg Documented by: Hydromorphone HCl (Hydromorphone 0.5 Mg/0.5 Ml Syringe) 0.5 mg IVP Q2H PRN PRN Reason: Pain 8 to 10 Last Admin: 01/14/21 03:48 Dose: 0.5 mg Documented by: Piperacillin Sod/Tazobactam (Sod 4.5 gm/ Sodium Chloride) 100 mls @ 200 mls/hr IV Q6H [facility] Last Infusion: 01/14/21 02:22 Dose: Infused Documented by: Insulin Aspart (Insulin Aspart 300 Unit/3 Ml Pen) 2 - 10 unit SUBQ 0800,1200,1700,2100 [facility]; Protocol Last Admin: 01/13/21 21:05 Dose: Not Given Documented by: Lisinopril (Lisinopril 5 Mg Tablet) 5 mg PO DAILY [facility] Last Admin: 01/13/21 19:37 Dose: 5 mg Documented by: Ondansetron HCl (Ondansetron Odt 4 Mg Tablet) 4 mg TL Q6HR PRN PRN Reason: Nausea / Vomiting Ondansetron HCl (Ondansetron 4 Mg/2 Ml Vial) 4 mg IVP Q6HR PRN PRN Reason: Nausea / Vomiting Prochlorperazine Edisylate (Prochlorperazine 10 Mg/2 Ml Vial) 10 mg IVP Q6HR PRN PRN Reason: Nausea / Vomiting Sodium Chloride (Sodium Chloride Flush 0.9% 10 Ml Syringe) 10 ml IVP PRN PRN PRN Reason: NEEDED PER PROVIDER ORDERS Last Admin: 01/14/21 01:54 Dose: 10 ml Documented by: Sodium Chloride (Sodium Chloride Flush 0.9% 10 Ml Syringe) 10 ml IVP 0 100,0900,1700 ANG[facility] Last Admin: 01/14/21 00:35 Dose: 10 ml Documented by: Objective - Vital Signs/Intake & Output Reviewed Vital Signs: Yes Vital Signs: Vital Signs x48h Temp Pulse Resp BP BP Pulse Ox 01/14/21 07:38 37.2 C 82 20 136/82 H 95 01/14/21 07:05 96 142/67 H 01/14/21 07:00 83 130/96 H 01/14/21 06:55 94 138/67 H 01/14/21 01:58 95 91/65 97 01/14/21 01:50 99 127/88 H 01/14/21 01:35 99 119/99 H 01/14/21 01:20 98 131/69 H 01/14/21 01:15 98 155/100 H 01/14/21 01:10 95 145/88 H 01/14/21 01:05 99 142/74 H Intake & Output: Intake & Output 01/11/21 01/12/21 01/13/21 01/14/21 23:59 23:59 23:59 23:59 Intake Total 1100 5182.917 100 Balance 1100 5182.917 100 - Objective General Appearance: positive: Lethargic, Other (obese male, laying flat, sonorous respirations, grimaces w pain when I move him and starts to get tearful with it. It's a 10/10) Eyes Bilateral: positive: PERRL, EOMI ENT: positive: Dry mucous membranes (from breathing thru his mouth while open) Neck: positive: No JVD. negative: Stiff neck Respiratory: positive: No respiratory distress. negative: Wheezes, Rales, Rhonchi Cardiovascular: positive: Regular rate & rhythm, Tachycardia. negative: Gallop/S4, Friction rub Abdomen: positive: Other (diffuse tenderness with 7/10 pain touching RUQ, LUQ and 10/10 touching RLQ. Rebound and guarding. One tinkle of a bowel sound heard.) Skin: positive: Warm, Diaphoresis Extremities: positive: Full ROM, No pedal edema Neurologic/Psychiatric: positive: Oriented x3, CN's nml (2-12), Motor nml - Lab Results Fish Bones: 01/14/21 05:05 01/14/21 05:05 Other Labs: Lab Results x24hrs 01/14/21 01/14/21 01/14/21 Range/Units 07:34 05:05 05:05 WBC 16.1 H (4.8-10.8) x10^3/uL RBC 5.72 (4.70-6.10) 10^6/uL Hgb 15.8 (14.0-18.0) g/dL Hct 49.3 (42.0-52.0) % MCV 86.2 (80.0-94.0) fL MCH 27.6 (27.0-31.0) pg MCHC 32.0 (32.0-36.0) g/dL RDW 12.5 (12.0-15.0) % Plt Count 183 (130-450) 10^3/uL MPV 10.3 (7.4-11.4) fL Neut # (Auto) 13.3 H (1.5-6.6) 10^3/uL Lymph # (Auto) 1.4 L (1.5-3.5) 10^3/uL [facility] # (Auto) 1.1 H (0.0-1.0) 10^3/uL Eos # (Auto) 0.2 (0.0-0.7) 10^3/uL Baso # (Auto) 0.1 (0.0-0.1) 10^3/uL Absolute Nucleated RBC 0.00 x10^3/uL Nucleated RBC % 0.0 /100WBC Sodium 136 (135-145) mmol/L Potassium 3.4 L (3.5-5.0) mmol/L Chloride 98 L (101-111) mmol/L Carbon Dioxide 28 (21-32) mmol/L Anion Gap 10.0 (6-13) BUN 15 (6-20) mg/dL Creatinine 0.9 (0.6-1.2) mg/dL Estimated GFR (MDRD) 90 (>89) Glucose 147 H (70-100) mg/dL POC Whole Bld Glucose 148 H (70 - 100) mg/dL Calcium 8.5 (8.5-10.3) mg/dL Total Bilirubin 2.5 H (0.2-1.0) mg/dL AST 13 (10-42) IU/L ALT 34 (10-60) IU/L Alkaline Phosphatase 53 (42-121) IU/L Total Protein 6.3 L (6.7-8.2) g/dL Albumin 3.6 (3.2-5.5) g/dL Globulin 2.7 (2.1-4.2) g/dL Albumin/Globulin Ratio 1.3 (1.0-2.2) / Range/Units 20:33 WBC (4.8-10.8) x10^3/uL RBC (4.70-6.10) 10^6/uL Hgb (14.0-18.0) g/dL Hct (42.0-52.0) % MCV (80.0-94.0) fL MCH (27.0-31.0) pg MCHC (32.0-36.0) g/dL RDW (12.0-15.0) % Plt Count (130-450) 10^3/uL MPV (7.4-11.4) fL Neut # (Auto) (1.5-6.6) 10^3/uL Lymph # (Auto) (1.5-3.5) 10^3/uL [facility] # (Auto) (0.0-1.0) 10^3/uL Eos # (Auto) (0.0-0.7) 10^3/uL Baso # (Auto) (0.0-0.1) 10^3/uL Absolute Nucleated RBC x10^3/uL Nucleated RBC % /100WBC Sodium (135-145) mmol/L Potassium (3.5-5.0) mmol/L Chloride (101-111) mmol/L Carbon Dioxide (21-32) mmol/L Anion Gap (6-13) BUN (6-20) mg/dL Creatinine (0.6-1.2) mg/dL Estimated GFR (MDRD) (>89) Glucose (70-100) mg/dL POC Whole Bld Glucose 120 H (70 - 100) mg/dL Calcium (8.5-10.3) mg/dL Total Bilirubin (0.2-1.0) mg/dL AST (10-42) IU/L ALT (10-60) IU/L Alkaline Phosphatase (42-121) IU/L Total Protein (6.7-8.2) g/dL Albumin (3.2-5.5) g/dL Globulin (2.1-4.2) g/dL Albumin/Globulin Ratio (1.0-2.2) ABX Reporting Has patient been on IV antibiotics over the past 48 hours?: Yes Assessment/Plan - Problem List (1) Appendicitis Impression: Management per general surgery. Day #2 in the hospital with day #2 antibiotics. Qualifiers: Appendicitis type: acute appendicitis Acute appendicitis type: with localized peritonitis Appendicitis gangrene presence: without gangrene Appendicitis perforation presence: without perforation Appendicitis abscess presence: without abscess Qualified Code(s): K35.30 - Acute appendicitis with localized peritonitis, without perforation or gangrene (2) Hypertension Conclusion/Plan: He is on clear liquids. Started on lisinopril. We are at goal with control of blood pressure Qualifiers: Hypertension type: primary hypertension Qualified Code(s): I10 - Essential (primary) hypertension (3) History of apnea Conclusion/Plan: He is a vague historian. He thinks he has a mask but he did not bring it with him. He does not use it on a regular basis. He is requiring 2 L nasal cannula to maintain O2 sats at 98%. On room air he is 87%. We will have him on continuous pulse ox while he is here especially since he falls asleep so easily. It has been a little difficult for us to achieve that goal while on MedSurg. I will discuss with respiratory therapy to see how we can monitor him better (4) Elevated liver enzymes Conclusion/Plan: No history of recreational substances abuse. He is morbidly obese and could have steatohepatitis. No history of alcohol abuse. Elevated liver enzymes have resolved. Acute hepatitis panel received. Results pending. He has hepatosplenomegaly with mild hepatic steatosis. No dilation of biliary system. (5) Hyperglycemia Conclusion/Plan: no history of DM. Glycosylated hemoglobin ordered. Not quite clear as a look at the labs if it has been taken and in process. But it is in the order set. Random glucose 147 this morning. He is received 2 units. (6) Pre-op evaluation Conclusion/Plan: Surgical risk calculator in a gentleman with all of his comorbidities Has a 10.8% risk of serious complication which is an average risk for his age and s tatus. He is slightly high risk for any complication at 16.6%. He is at increased risk for surgical site infection at 7.6%. Slightly increased risk for return to the operating room at 4.4%. He is at risk for sepsis as well. While his comorbidities have increased his surgical complication rate, they are all still manageable. Obstructive sleep apnea can be managed in the postoperative setting with slightly prolonged intubation until we can control his airway. Glucose is slightly elevated and that can be managed with insulin. Blood pressure can be managed with oral medication or IV medication. All of these are being done at this time to control risk and we will rely on general surgery judgment as to what surgical management will be for this gentleman's appendicitis. Case has been discussed with anesthesia Qualifiers: Qualified Code(s): K35.30 - Acute appendicitis with localized peritonitis, without perforation or gangrene
[2021-01-14] MEDS: lisinopriL 5 MG TABLET PO SCH (09:06)
[2021-01-14] MEDS: HYDROcod/ACETAM 5/325 MG TABLET PO PRN ×3 (09:06→19:12)
[2021-01-14] MEDS: INSULIN ASPART 300 UNIT/3 ML PEN SUBQ SCH ×4 (09:11→20:39)
[2021-01-14 12:32] LABS: ESTIMATED AVERAGE GLUCOSE 137 mg/dL (70-100); HEMOGLOBIN A1c% 6.4 % (4.27-6.07)
--- NOTE | 2021-01-14 15:21 | PROVIDER PROGRESS NOTE ---
Subjective - Subjective Pt reports feeling: Improved (less pain. no nausea) Objective - Vital Signs/Intake & Output Reviewed Vital Signs: Yes Vital Signs: Vital Signs x48h Temp Pulse Resp BP Pulse Ox 01/14/21 13:35 95 152/83 H 01/14/21 13:30 99 140/114 H 01/14/21 13:25 90 127/94 H 01/14/21 13:20 110 H 156/112 H 01/14/21 13:15 79 148/94 H 01/14/21 13:10 117 H 149/88 H 01/14/21 13:05 75 148/103 H 01/14/21 12:39 36.8 C 92 24 152/93 H 97 01/14/21 07:38 37.2 C 82 20 136/82 H 95 Intake & Output: Intake & Output 01/11/21 01/12/21 01/13/21 01/14/21 23:59 23:59 23:59 23:59 Intake Total 1100 5182.917 1260 Balance 1100 5182.917 1260 - Objective General Appearance: positive: No acute distress, Alert Respiratory: positive: No respiratory distress Abdomen: positive: Non-tender, No distention - Lab Results Fish Bones: 01/14/21 05:05 01/14/21 05:05 Other Labs: Lab Results x24hrs 01/14/21 01/14/21 01/14/21 Range/Units 11:24 07:34 05:05 WBC (4.8-10.8) x10^3/uL RBC (4.70-6.10) 10^6/uL Hgb (14.0-18.0) g/dL Hct (42.0-52.0) % MCV (80.0-94.0) fL MCH (27.0-31.0) pg MCHC (32.0-36.0) g/dL RDW (12.0-15.0) % Plt Count (130-450) 10^3/uL MPV (7.4-11.4) fL Neut # (Auto) (1.5-6.6) 10^3/uL Lymph # (Auto) (1.5-3.5) 10^3/uL [facility] # (Auto) (0.0-1.0) 10^3/uL Eos # (Auto) (0.0-0.7) 10^3/uL Baso # (Auto) (0.0-0.1) 10^3/uL Absolute Nucleated RBC x10^3/uL Nucleated RBC % /100WBC Sodium (135-145) mmol/L Potassium (3.5-5.0) mmol/L Chloride (101-111) mmol/L Carbon Dioxide (21-32) mmol/L Anion Gap (6-13) BUN (6-20) mg/dL Creatinine (0.6-1.2) mg/dL Estimated GFR (MDRD) (>89) Glucose (70-100) mg/dL POC Whole Bld Glucose 127 H 148 H (70 - 100) mg/dL Estimat Average Glucose 137 H (70-100) mg/dL Hemoglobin A1c % 6.4 H (4.27-6.07) % Calcium (8.5-10.3) mg/dL Total Bilirubin (0.2-1.0) mg/dL AST (10-42) IU/L ALT (10-60) IU/L Alkaline Phosphatase (42-121) IU/L Total Protein (6.7-8.2) g/dL Albumin (3.2-5.5) g/dL Globulin (2.1-4.2) g/dL Albumin/Globulin Ratio (1.0-2.2) 01/14/21 01/14/21 01/13/21 Range/Units 05:05 05:05 20:33 WBC 16.1 H (4.8-10.8) x10^3/uL RBC 5.72 (4.70-6.10) 10^6/uL Hgb 15.8 (14.0-18.0) g/dL Hct 49.3 (42.0-52.0) % MCV 86.2 (80.0-94.0) fL MCH 27.6 (27.0-31.0) pg MCHC 32.0 (32.0-36.0) g/dL RDW 12.5 (12.0-15.0) % Plt Count 183 (130-450) 10^3/uL MPV 10.3 (7.4-11.4) fL Neut # (Auto) 13.3 H (1.5-6.6) 10^3/uL Lymph # (Auto) 1.4 L (1.5-3.5) 10^3/uL [facility] # (Auto) 1.1 H (0.0-1.0) 10^3/uL Eos # (Auto) 0.2 (0.0-0.7) 10^3/uL Baso # (Auto) 0.1 (0.0-0.1) 10^3/uL Absolute Nucleated RBC 0.00 x10^3/uL Nucleated RBC % 0.0 /100WBC Sodium 136 (135-145) mmol/L Potassium 3.4 L (3.5-5.0) mmol/L Chloride 98 L (101-111) mmol/L Carbon Dioxide 28 (21-32) mmol/L Anion Gap 10.0 (6-13) BUN 15 (6-20) mg/dL Creatinine 0.9 (0.6-1.2) mg/dL Estimated GFR (MDRD) 90 (>89) Glucose 147 H (70-100) mg/dL POC Whole Bld Glucose 120 H (70 - 100) mg/dL Estimat Average Glucose (70-100) mg/dL Hemoglobin A1c % (4.27-6.07) % Calcium 8.5 (8.5-10.3) mg/dL Total Bilirubin 2.5 H (0.2-1.0) mg/dL AST 13 (10-42) IU/L ALT 34 (10-60) IU/L Alkaline Phosphatase 53 (42-121) IU/L Total Protein 6.3 L (6.7-8.2) g/dL Albumin 3.6 (3.2-5.5) g/dL Globulin 2.7 (2.1-4.2) g/dL Albumin/Globulin Ratio 1.3 (1.0-2.2) Assessment/Plan - Problem List (1) Appendicitis Impression: feeling better. continue present care. if remains afebrile and wbc improved tomorrow plan home tomorrow with oral antibiotics Qualifiers: Appendicitis type: acute appendicitis Qualified Code(s): K35.30 - Acute appendicitis with localized peritonitis, without perforation or gangrene
[2021-01-15] MEDS: HYDROcod/ACETAM 5/325 MG TABLET PO PRN ×2 (00:36→06:28)
[2021-01-15] MEDS: SODIUM CHLORIDE FLUSH 0.9% 10 ML SYRINGE IVP SCH ×2 (00:37→01:35)
[2021-01-15] MEDS: PIPERACILLIN/TAZOBACTAM 4.5 GM in SODIUM CHLORIDE 0.9% MINIBAG 100 ML IV SCH ×3 (01:34→14:09)
[2021-01-15 05:27] LABS: BASOPHILS % (AUTO) 0.4 %; EOSINOPHILS # (AUTO) 0.6 10^3/uL (0.0-0.7); HCT - HEMATOCRIT 46.2 % (42.0-52.0); HGB - HEMOGLOBIN 14.7 g/dL (14.0-18.0); LYMPHOCYTES # (AUTO) 1.5 10^3/uL (1.5-3.5); LYMPHOCYTES % (AUTO) 12.9 %; MEAN CORPUSCULAR HEMOGLOBIN 27.4 pg (27.0-31.0); MEAN CORPUSCULAR HGB CONC 31.8 g/dL (32.0-36.0); MEAN CORPUSCULAR VOLUME 86.2 fL (80.0-94.0); MEAN PLATELET VOLUME 10.3 fL (7.4-11.4); MONOCYTES # (AUTO) 0.9 10^3/uL (0.0-1.0); MONOCYTES % (AUTO) 7.5 %; NEUTROPHILS # (AUTO) 8.3 10^3/uL (1.5-6.6); NEUTROPHILS % (AUTO) 73.6 %; PLT - PLATELET COUNT 174 10^3/uL (130-450); RED BLOOD COUNT 5.36 10^6/uL (4.70-6.10); RED CELL DISTRIBUTION WIDTH 12.5 % (12.0-15.0); WHITE BLOOD COUNT 11.3 x10^3/uL (4.8-10.8)
[2021-01-15 05:39] LABS: ALBUMIN 3.3 g/dL (3.2-5.5); ALBUMIN/GLOBULIN RATIO 1.2 (1.0-2.2); BILIRUBIN,TOTAL 1.7 mg/dL (0.2-1.0); CALCIUM 8.7 mg/dL (8.5-10.3); CREATININE 0.7 mg/dL (0.6-1.2); POTASSIUM 3.2 mmol/L (3.5-5.0); TOTAL PROTEIN 6.1 g/dL (6.7-8.2)
[2021-01-15] MEDS ORDERED: POTASSIUM CHLORIDE 20 MEQ TABLET PO ONE (07:10)
[2021-01-15] MEDS: INSULIN ASPART 300 UNIT/3 ML PEN SUBQ SCH ×2 (07:56→11:55)
[2021-01-15] MEDS: SODIUM CHLORIDE FLUSH 0.9% 10 ML SYRINGE IVP PRN (07:57)
[2021-01-15] MEDS: lisinopriL 5 MG TABLET PO SCH (09:36)
[2021-01-15 12:46] LABS: HEPATITIS A IGM NON-REACTIVE (NON-REACTIVE); HEPATITIS B CORE ANTIBODY IGM NON-REACTIVE (NON-REACTIVE); HEPATITIS B SURFACE ANTIGEN NON-REACTIVE (NON-REACTIVE); HEPATITIS C ANTIBODY NON-REACTIVE (NON-REACTIVE)
--- NOTE | 2021-01-15 12:57 | Discharge Plan ---
Discharge Plan Problem Reviewed?: Yes Disposition: Home, Self Care Condition: Stable Prescriptions: HYDROcod/ACETAM 5/325 [Ririe 5/325] 1 tab PO Q4HR PRN #20 tablet PRN Reason: Pain 5 to 7 Amox/Clav 875/125 [Augmentin 875/125 Tab] 1 tablet PO Q12H 10 Days #14 tablet metroNIDAZOLE [Flagyl] 500 mg PO BID #14 tablet HYDROcod/ACETAM 5/325 [Ririe 5/325] 1 tablet PO Q6H PRN #20 tablet PRN Reason: Pain lisinopriL [Zestril] 5 mg PO DAILY #60 tablet Diet: Diabetic Activity Restrictions: No Restrictions Shower Restrictions: No Driving Restrictions: No Weight Bearing: Full Weight Assessment: Acute appendicitis - improved No Smoking: If you smoke, Please STOP! Call for help. Follow-up with: Luciano Elam MD [Provider Admit Priv/Credential] -
--- NOTE | 2021-01-15 13:04 | DISCHARGE SUMMARY ---
"Discharge Summary Admit Date: 01/12/21 Discharge Date: 01/15/21 Discharging Provider: MD Carey Primary Care Provider: None local; Worked up at [facility] in [place] in the past Code Status: Attempt Resuscitation Condition at Discharge: Stable Discharge Disposition: 01 Home, Self Care - DIAGNOSES Admission Diagnoses: Acute appendicitis Discharge Diagnoses with Status of Each Condition: Improved - HPI History of Present Illness: 45 year old gentleman who presented to the ED with 1 day of worsening right lower quadrant pain. Early extensive past medical history including cardiac issues with a history of congestive heart failure, some sort of lung disease, and severe sleep apnea.But [facility] in the past and does not have a local doctor. He also reports that he has been treated for hypertension in the past and has also been given a diagnosis of type 2 diabetes. He does not take medication for either of these issues.In the emergency room he was evaluated by Dr. Elam after receiving a CT scan showing a early appendicitis. He was admitted to the hospital for IV antibiotics and pain control as well as watchful waiting. - CONSULTS | PROCEDURES Consultations: Hospitalist Procedures: None - HOSPITAL COURSE Hospital Course: Chinmay was started on Augmentin and Flagyl and his improvement was slow. He never complained of nausea or vomiting and was able to eat a clear liquid diet without difficulty. By the third hospital day, his pain began to improve. His white count dropped from 17-16 and then ultimately to 11 with a near normal differential. Today he is tolerating a regular diet. He is taking very little pain medication though he says when he moves he still does have some right lower quadrant pain. He reports that it is significantly improved from admission. - ALLERGIES Allergies/Adverse Reactions: Allergies Allergy/AdvReac Type Severity Reaction Status Date / Time No Known Drug Allergies Allergy Verified 01/12/21 20:44 - MEDICATIONS Home Medications: Ambulatory Orders Medication Instructions Recorded Confirmed Acetaminophen [Tylenol] 650 mg PO Q4HR PRN tablet 01/15/21 Amox/Clav 875/125 [Augmentin 1 tablet PO Q12H 10 Days #14 tablet 01/15/21 875/125 Tab] HYDROcod/ACETAM 5/325 [Lynn 5/325] 1 tab PO Q4HR PRN #20 tablet 01/15/21 HYDROcod/ACETAM 5/325 [Lynn 5/325] 1 tablet PO Q6H PRN #20 tablet 01/15/21 lisinopriL [Zestril] 5 mg PO DAILY #60 tablet 01/15/21 metroNIDAZOLE [Flagyl] 500 mg PO BID #14 tablet 01/15/21 - PHYSICAL EXAM AT DISCHARGE General Appearance: positive: No acute distress Eyes Bilateral: positive: Normal inspection, PERRL, EOMI ENT: positive: ENT inspection nml, Pharynx nml, No signs of dehydration Neck: positive: Nml inspection Respiratory: positive: Chest non-tender, Breath sounds nml Cardiovascular: positive: Regular rate & rhythm Peripheral Pulses: positive: 0 Abdomen: positive: Nml bowel sounds, No distention, Tenderness (Mild right lower quadrant tenderness to palpation without rebound. ) Back: negative: CVA tenderness (R), CVA tenderness (L) Skin: positive: Color nml Extremities: positive: Non-tender Neurologic/Psychiatric: positive: Oriented x3 - LABS Result Diagrams: 01/15/21 05:15 01/15/21 05:15 - QUALITY (Female Hip Fx Only) Was patient sent home on osteoporosis medication?: No - FOLLOW UP Follow Up: Dr. Luciano Elam in 1 week - TIME SPENT Time Spent in Discharge (Minutes): 20"
[2021-01-15 13:43] VITALS: BP 138/85
--- NOTE | 2021-01-15 14:13 | PROVIDER PROGRESS NOTE ---
Subjective - Prog Note Date Prog Note Date: 01/15/21 Prog Note Time: 14:16 - Subjective Pt reports feeling: Improved Subjective: He was able to be advanced to regular diet. Did not give him any pain. Still no bowel movement but having lots of flatus. No fevers. General surgery is managing his appendicitis status and plans on discharging him today. Current Medications - Current Medications Current Medications: Active Medications Acetaminophen (Acetaminophen 325 Mg Tablet) 650 mg PO Q4HR PRN PRN Reason: Pain 1 to 4 Last Admin: 01/13/21 20:59 Dose: 650 mg Documented by: Hydrocodone Bitart/Acetaminophen (Hydrocod/Acetam 5/325 Mg Tablet) 1 tab PO Q4HR PRN PRN Reason: Pain 5 to 7 Last Admin: 01/15/21 06:28 Dose: 1 tab Documented by: Piperacillin Sod/Tazobactam (Sod 4.5 gm/ Sodium Chloride) 100 mls @ 200 mls/hr IV Q6H [facility] Last Admin: 01/15/21 14:09 Dose: Not Given Documented by: Insulin Aspart (Insulin Aspart 300 Unit/3 Ml Pen) 2 - 10 unit SUBQ 0800,1200,1700,2100 [facility]; Protocol Last Admin: 01/15/21 11:55 Dose: Not Given Documented by: Lisinopril (Lisinopril 5 Mg Tablet) 5 mg PO DAILY [facility] Last Admin: 01/15/21 09:36 Dose: 5 mg Documented by: Ondansetron HCl (Ondansetron Odt 4 Mg Tablet) 4 mg TL Q6HR PRN PRN Reason: Nausea / Vomiting Ondansetron HCl (Ondansetron 4 Mg/2 Ml Vial) 4 mg IVP Q6HR PRN PRN Reason: Nausea / Vomiting Prochlorperazine Edisylate (Prochlorperazine 10 Mg/2 Ml Vial) 10 mg IVP Q6HR PRN PRN Reason: Nausea / Vomiting Sodium Chloride (Sodium Chloride Flush 0.9% 10 Ml Syringe) 10 ml IVP PRN PRN PRN Reason: NEEDED PER PROVIDER ORDERS Last Admin: 01/15/21 07:57 Dose: 10 ml Documented by: Sodium Chloride (Sodium Chloride Flush 0.9% 10 Ml Syringe) 10 ml IVP 01 00,0900,1700 [facility] Last Admin: 01/15/21 01:35 Dose: 10 ml Documented by: Objective - Vital Signs/Intake & Output Reviewed Vital Signs: Yes Vital Signs: Vital Signs x48h Temp Pulse Resp BP Pulse Ox 01/15/21 13:42 36.7 C 92 18 138/85 H 97 01/15/21 07:46 36.6 C 69 16 128/78 95 Intake & Output: Intake & Output 01/12/21 01/13/21 01/14/21 01/15/21 23:59 23:59 23:59 23:59 Intake Total 1100 5182.917 2260 960 Balance 1100 5182.917 2260 960 - Objective General Appearance: positive: No acute distress, Alert, Other (5 foot 11 inch white male who is 124 kg) Eyes Bilateral: positive: PERRL, EOMI ENT: positive: No signs of dehydration Neck: positive: No JVD. negative: Stiff neck Respiratory: positive: No respiratory distress. negative: Wheezes, Rales, Rhonchi Cardiovascular: positive: Regular rate & rhythm. negative: Gallop/S4, Friction rub Abdomen: positive: Nml bowel sounds, No distention, Tenderness (Still present in right lower quadrant, but much, much less so than yesterday. He says that it is only a twinge now. The referred pain from palpating his other quadrants has resolved.) Skin: positive: Warm, Dry Extremities: positive: Full ROM Neurologic/Psychiatric: positive: Oriented x3, CN's nml (2-12), Motor nml - Lab Results Fish Bones: 01/15/21 05:15 01/15/21 05:15 Other Labs: Lab Results x24hrs 01/15/21 01/15/21 01/15/21 Range/Units 11:08 07:39 05:15 WBC (4.8-10.8) x10^3/uL RBC (4.70-6.10) 10^6/uL Hgb (14.0-18.0) g/dL Hct (42.0-52.0) % MCV (80.0-94.0) fL MCH (27.0-31.0) pg MCHC (32.0-36.0) g/dL RDW (12.0-15.0) % Plt Count (130-450) 10^3/uL MPV (7.4-11.4) fL Neut # (Auto) (1.5-6.6) 10^3/uL Lymph # (Auto) (1.5-3.5) 10^3/uL [place] # (Auto) (0.0-1.0) 10^3/uL Eos # (Auto) (0.0-0.7) 10^3/uL Baso # (Auto) (0.0-0.1) 10^3/uL Absolute Nucleated RBC x10^3/uL Nucleated RBC % /100WBC Sodium 140 (135-145) mmol/L Potassium 3.2 L (3.5-5.0) mmol/L Chloride 101 (101-111) mmol/L Carbon Dioxide 28 (21-32) mmol/L Anion Gap 11.0 (6-13) BUN 15 (6-20) mg/dL Creatinine 0.7 (0.6-1.2) mg/dL Estimated GFR (MDRD) 121 (>89) Glucose 151 H (70-100) mg/dL POC Whole Bld Glucose 140 H 125 H (70 - 100) mg/dL Calcium 8.7 (8.5-10.3) mg/dL Total Bilirubin 1.7 H (0.2-1.0) mg/dL AST 12 (10-42) IU/L ALT 26 (10-60) IU/L Alkaline Phosphatase 41 L (42-121) IU/L Total Protein 6.1 L (6.7-8.2) g/dL Albumin 3.3 (3.2-5.5) g/dL Globulin 2.8 (2.1-4.2) g/dL Albumin/Globulin Ratio 1.2 (1.0-2.2) Hepatitis A IgM Ab (NON-REACTIVE) Hep Bs Antigen (NON-REACTIVE) Hep B Core IgM Ab (NON-REACTIVE) Hepatitis C Antibody (NON-REACTIVE) Hep C Ab Signal/Cutoff (<1.00) 01/15/21 01/14/21 01/14/21 Range/Units 05:15 20:31 16:41 WBC 11.3 H (4.8-10.8) x10^3/uL RBC 5.36 (4.70-6.10) 10^6/uL Hgb 14.7 (14.0-18.0) g/dL Hct 46.2 (42.0-52.0) % MCV 86.2 (80.0-94.0) fL MCH 27.4 (27.0-31.0) pg MCHC 31.8 L (32.0-36.0) g/dL RDW 12.5 (12.0-15.0) % Plt Count 174 (130-450) 10^3/uL MPV 10.3 (7.4-11.4) fL Neut # (Auto) 8.3 H (1.5-6.6) 10^3/uL Lymph # (Auto) 1.5 (1.5-3.5) 10^3/uL [place] # (Auto) 0.9 (0.0-1.0) 10^3/uL Eos # (Auto) 0.6 (0.0-0.7) 10^3/uL Baso # (Auto) 0.0 (0.0-0.1) 10^3/uL Absolute Nucleated RBC 0.00 x10^3/uL Nucleated RBC % 0.0 /100WBC Sodium (135-145) mmol/L Potassium (3.5-5.0) mmol/L Chloride (101-111) mmol/L Carbon Dioxide (21-32) mmol/L Anion Gap (6-13) BUN (6-20) mg/dL Creatinine (0.6-1.2) mg/dL Estimated GFR (MDRD) (>89) Glucose (70-100) mg/dL POC Whole Bld Glucose 99 140 H (70 - 100) mg/dL Calcium (8.5-10.3) mg/dL Total Bilirubin (0.2-1.0) mg/dL AST (10-42) IU/L ALT (10-60) IU/L Alkaline Phosphatase (42-121) IU/L Total Protein (6.7-8.2) g/dL Albumin (3.2-5.5) g/dL Globulin (2.1-4.2) g/dL Albumin/Globulin Ratio (1.0-2.2) Hepatitis A IgM Ab (NON-REACTIVE) Hep Bs Antigen (NON-REACTIVE) Hep B Core IgM Ab (NON-REACTIVE) Hepatitis C Antibody (NON-REACTIVE) Hep C Ab Signal/Cutoff (<1.00) 01/14/21 Range/Units 07:53 WBC (4.8-10.8) x10^3/uL RBC (4.70-6.10) 10^6/uL Hgb (14.0-18.0) g/dL Hct (42.0-52.0) % MCV (80.0-94.0) fL MCH (27.0-31.0) pg MCHC (32.0-36.0) g/dL RDW (12.0-15.0) % Plt Count (130-450) 10^3/uL MPV (7.4-11.4) fL Neut # (Auto) (1.5-6.6) 10^3/uL Lymph # (Auto) (1.5-3.5) 10^3/uL [place] # (Auto) (0.0-1.0) 10^3/uL Eos # (Auto) (0.0-0.7) 10^3/uL Baso # (Auto) (0.0-0.1) 10^3/uL Absolute Nucleated RBC x10^3/uL Nucleated RBC % /100WBC Sodium (135-145) mmol/L Potassium (3.5-5.0) mmol/L Chloride (101-111) mmol/L Carbon Dioxide (21-32) mmol/L Anion Gap (6-13) BUN (6-20) mg/dL Creatinine (0.6-1.2) mg/dL Estimated GFR (MDRD) (>89) Glucose (70-100) mg/dL POC Whole Bld Glucose (70 - 100) mg/dL Calcium (8.5-10.3) mg/dL Total Bilirubin (0.2-1.0) mg/dL AST (10-42) IU/L ALT (10-60) IU/L Alkaline Phosphatase (42-121) IU/L Total Protein (6.7-8.2) g/dL Albumin (3.2-5.5) g/dL Globulin (2.1-4.2) g/dL Albumin/Globulin Ratio (1.0-2.2) Hepatitis A IgM Ab NON-REACTIVE (NON-REACTIVE) Hep Bs Antigen NON-REACTIVE (NON-REACTIVE) Hep B Core IgM Ab NON-REACTIVE (NON-REACTIVE) Hepatitis C Antibody NON-REACTIVE (NON-REACTIVE) Hep C Ab Signal/Cutoff 0.30 (<1.00) ABX Reporting Has patient been on IV antibiotics over the past 48 hours?: Yes Assessment/Plan - Problem List (1) Hypertension Impression: He has been seen by general surgery today. Doing much better. No pain after eating a regular diet. Plan is for him to go home. At discharge I spent about 15 minutes with them going over his comorbidities. He states that he is not very compliant with his blood pressure medicines. I told him about the risk of heart attack and stroke with uncontrolled high blood pressure as well as future risk of peripheral vascular disease. If you combine his blood pressure risk with his apnea, and possible future diabetes it would behoove him to start modifying his risk factors at this time. It would help him over all with many problems down the road and would possibly help him live longer. He states that he will establish himself with a primary care provider be better about taking his medications on a regular basis. Qualifiers: Hypertension type: primary hypertension Qualified Code(s): I10 - Essential (primary) hypertension (3) History of apnea Conclusion/Plan: He is a vague historian. He thinks he has a mask but he did not bring it with him. He does not use it on a regular basis. He is requiring 2 L nasal cannula to maintain O2 sats at 98%. On room air he is 87%. He had quite a bit of snoring while he was here. Apnea. When I observed him apnea would last anyw here from 10 to 30 seconds. O2 sats would drop into the mid 80s. I have asked him to please follow-up with his primary care provider. I have discussed that apnea can lead to risk of heart attack and stroke as well as possible vascular dementia down the road. We also discussed obesity hypoventilation syndrome. I explained to him that is treated with weight loss. Again he promises to follow through with a new primary care provider (4) Elevated liver enzymes resolved. Conclusion/Plan: No history of recreational substances abuse. He is morbidly obese and could have steatohepatitis. No history of alcohol abuse. Elevated liver enzymes have resolved. Acute hepatitis panel received. Results pending. He has hepatosplenomegaly with mild hepatic steatosis. No dilation of biliary system. (5) Hyperglycemia Conclusion/Plan: no history of DM. 6.4% glycosylated hemoglobin. While he was here, he received occasional sliding scale insulin. Rest of the time he did not meet criteria to take it on a regular basis. I spoke about regular exercise dropping his glucose. For instance walking 30 minutes a day w ith a brisk walk will use a lot of sugar because his gluteus, hamstrings, and quadriceps will need the energy. In addition to walking every day, focus on reducing potatoes, bread, rice, pasta. He wrinkles his nose and shakes his head no. I told him that I did not need him to stop eating those foods I just need him to reduce those foods. Every day he can have 1 of those things but he cannot have those in multiple meals. Focus on grilled meats only. Eat lots of fruits and vegetables. If he can walk 30 minutes a day, reduce his carbs, he might be able to bring his glucose down to what he needs without any other intervention. He needs to lose the weight. Again it was a conversation regarding risk factor modification for heart attack, stroke, peripheral vascular disease, kidney disease. He is early in the disease process with his hypertension, apnea, obesity, hyperglycemia.
== END 2021-01-15 14:15 | disposition home or self-care (01) | DRG 373 ==
LOC: ED 20:30 → SDS 22:30 → MS3 23:12 → MS2 01-13 17:01 → SDS 01-13 19:26 → MS2 01-13 19:27
PROVIDERS: ADMIT Surgery; ATTEND Surgery
DX: K35.30 Acute appendicitis with localized peritonitis, without perforation or gangrene (principal); I10 Essential (primary) hypertension; G47.30 Sleep apnea, unspecified; R73.9 Hyperglycemia, unspecified; E66.01 Morbid (severe) obesity due to excess calories; Z68.31 Body mass index [BMI] 31.0-31.9, adult; F17.210 Nicotine dependence, cigarettes, uncomplicated; R16.2 Hepatomegaly with splenomegaly, not elsewhere classified; K76.0 Fatty (change of) liver, not elsewhere classified; Z20.822 Contact with and (suspected) exposure to COVID-19
CPT/HCPCS: 0202U; 36415; 74177; 80053; 80074; 81003; 83036; 83690; 85025; 85027; 93005; 96374; 96375; 99284; 99285; A9270; J1170; J7120; Q9967; 81001; 87086